=== PATIENT | male | born 1995 | race Caucasian/White ===

== ENCOUNTER 2025-02-13 13:27 | Inpatient (IN) | payer BC ==
[2025-02-13 14:55] VITALS: BMI 23.9
[2025-02-13] MEDS ORDERED: POLYETHYLENE GLYCOL (HEALTHYLAX) 3350 17 GM PACKET PO PRN (15:30)
[2025-02-13] MEDS ORDERED: guaiFENesin 600 MG TABLET.ER (FP) PO PRN (15:30)
[2025-02-13] MEDS ORDERED: BISMUTH SUBSALICYLATE 524 MG/30 ML PO PRN (15:30)
[2025-02-13] MEDS ORDERED: NALOXONE (NARCAN) HCL 4 MG/0.1 ML SPRAY NS PRN (15:30)
[2025-02-13] MEDS ORDERED: LOPERAMIDE HCL 2 MG CAPSULE PO PRN (15:30)
[2025-02-13] MEDS ORDERED: MAGNESIUM HYDROX 2400MG/30ML ORAL SUSPENSION 30 ML CUP PO PRN (15:30)
[2025-02-13] MEDS ORDERED: ONDANSETRON *ODT* 4 MG TABLET SL PRN (15:30)
[2025-02-13] MEDS ORDERED: NICOTINE POLACRILEX 2 MG LOZENGE BC PRN (15:30)
[2025-02-13] MEDS ORDERED: NICOTINE POLACRILEX 2 MG GUM BUC PRN (15:30)
[2025-02-13] MEDS ORDERED: DICYCLOMINE HCL 10 MG CAPSULE PO PRN (15:30)
[2025-02-13] MEDS ORDERED: IBUPROFEN 400 MG TABLET (FP) PO PRN (15:30)
[2025-02-13] MEDS ORDERED: BENZOCAINE/MENTHOL (CHLORASEPTIC ) LOZENGE MM PRN (15:30)
[2025-02-13] MEDS ORDERED: MAG HYDROX/AL HYDROX/SIMETH 30 ML UNIT-DOSE CUP PO PRN (15:30)
[2025-02-13] MEDS ORDERED: BENZONATATE 200 MG CAPSULE PO PRN (15:30)
[2025-02-13] MEDS: METHOCARBAMOL 500 MG TABLET PO PRN (19:19)
[2025-02-13] MEDS: MELATONIN 5 MG TABLETS PO SCH (22:18)
[2025-02-13] MEDS: HYDROCORTISONE 1% TOPICAL CREAM 30 GM TUBE TP SCH (22:18)
[2025-02-13] MEDS: THIAMINE 100 MG TABLET PO SCH (22:19)
[2025-02-13] MEDS: ACETAMINOPHEN 325 MG TABLET (FP) PO PRN (22:31)
[2025-02-14] MEDS: IBUPROFEN 600 MG TABLET (FP) PO PRN (03:36)
[2025-02-14] MEDS ORDERED: methaDONE HCL 10 MG TABLET (FOR DETOX USE ONLY) PO PRN (08:52)
[2025-02-14] MEDS: diazePAM 5 MG TABLET PO SCH (10:09)
[2025-02-14] MEDS: PRENATAL VITAMINS W/ FOLIC ACID TABLET (FP) PO SCH (10:10)
[2025-02-14] MEDS: methaDONE HCL 10 MG TABLET (FOR DETOX USE ONLY) PO ONE (10:11)
[2025-02-14] MEDS: cloNIDine HCL 0.1 MG TABLET PO PRN (11:20)
[2025-02-14] MEDS: diazePAM 5 MG TABLET PO PRN (15:36)
[2025-02-16] MEDS: diazePAM 5 MG TABLET PO SCH (06:08)
[2025-02-16] MEDS: methaDONE HCL 10 MG TABLET (FOR DETOX USE ONLY) PO ONE (09:23)
[2025-02-16 12:47] LABS: HEMATOCRIT 44.3 % (40.1-51.0); HEMOGLOBIN 13.2 g/dL (13.7-17.5); MCHC 29.8 g/dl (32.3-36.5); MEAN PLT VOLUME 9.3 fl (9.4-12.4); PLATELET COUNT 498 x10^3/uL (163-337); RDW 17.6 % (12.0-15.6)
[2025-02-16 12:48] LABS: POTASSIUM 4.2 mmol/L (3.5-5.1)
[2025-02-16 12:53] LABS: ALBUMIN 3.4 g/dl (3.4-5.0); BLOOD UREA NITROGEN 9.2 mg/dL (7-18)
[2025-02-16 12:54] LABS: CALCIUM 10.4 mg/dL (8.5-10.1)
[2025-02-16 12:57] LABS: CREATININE 1.1 mg/dL (0.55-1.3)
[2025-02-16 12:58] LABS: BILIRUBIN,TOTAL 0.2 mg/dL (0.2-1)
[2025-02-17] MEDS: diazePAM 5 MG TABLET PO SCH (06:31)
[2025-02-18] MEDS: diazePAM 5 MG TABLET PO ONE (05:26)
[2025-02-18] MEDS: methaDONE HCL 10 MG TABLET (FOR DETOX USE ONLY) PO ONE (09:20)
[2025-02-19 08:38] VITALS: BP 137/80; PULSE 100; RESP 16; TEMP 97.4
== END 2025-02-19 08:41 | disposition home or self-care (01) | DRG 773 ==
LOC: YASAS 13:27 → Y3N 16:53
PROVIDERS: ADMIT Family Medicine; ATTEND Family Medicine
PROC: HZ2ZZZZ Detoxification Services for Substance Abuse Treatment (ICD-10-PCS; principal; 2025-02-13)
DX: F11.23 Opioid dependence with withdrawal (principal); F10.230 Alcohol dependence with withdrawal, uncomplicated; F13.20 Sedative, hypnotic or anxiolytic dependence, uncomplicated; F17.290 Nicotine dependence, other tobacco product, uncomplicated
CPT/HCPCS: 36415; 80053; 85027; 93005; 93010